=== PATIENT | male | born 1960 | race Native Hawaiian/Other Pacific Islander ===

== ENCOUNTER → 2016-12-20 | Outpatient (CLI) | payer BC ==
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
== END | disposition home or self-care (01) ==
LOC: RADCTMAIN 08:53 → EDBD 09:00
PROVIDERS: ATTEND Internal Medicine
DX: M48.02 Spinal stenosis, cervical region (principal); M99.71 Connective tissue and disc stenosis of intervertebral foramina of cervical region; J43.9 Emphysema, unspecified; M50.321 Other cervical disc degeneration at C4-C5 level; M46.92 Unspecified inflammatory spondylopathy, cervical region; M47.812 Spondylosis without myelopathy or radiculopathy, cervical region
CPT/HCPCS: 72125

== ENCOUNTER → 2017-03-25 | Outpatient (CLI) | payer BC ==
--- NOTE | 2017-03-25 22:07 | MR ---
EXAMINATION TYPE: MR lumbar spine wo con DATE OF EXAM: 03/25/2017 COMPARISON: NONE HISTORY: 57-year-old male low back pain. TECHNIQUE: Multiplanar, multisequence images of the lumbar spine were acquired. FINDINGS: Vertebral body heights are preserved. No suspicious bone marrow replacement. Conus medullaris is normal. Hypertrophic facet arthropathy lower lumbar spine with grade 1 anterolisthesis at L5-S1. Mild bulging discs throughout especially at L4-L5 and L5-S1. Ligamentum flavum thickening also at L4- L5. There is a component of mild congenital spinal canal stenosis with AP canal dimension of 1.2 cm in th e mid to lower lumbar spine. From T12 through L3 levels, no significant spinal canal or neuroforaminal stenosis. At L3-L4, mild bulging disc minimally impressing on the ventral thecal sac. There is mild bilateral n euroforaminal stenosis without spinal canal stenosis. At L4-L5, there is bulging disc with ligamentum flavum thickening and hypertrophic facet arthropathy. The changes mildly accentuates the congenital canal stenosis and cause mild left greater than right neuroforaminal stenosis. Disc material closely approaches and may abut the traversing left L5 nerve r oot. At L5-S1, there is diffuse disc bulge and hypertrophic facet arthropathy. There is a right intraforam inal annular fissuring as well. Changes result in moderate right neuroforaminal stenosis and mild lef t neuroforaminal stenosis. Disc material also closely approaches and may abut the traversing left S1 nerve root. No spinal canal stenosis. T2 intermediate signal lesion measuring 1.7 cm in the posterior upper to midpole left kidney. Further ultrasound evaluation is recommended to ensure that this represents a benign cyst. IMPRESSION: 1. Hypertrophic facet arthropathy lower lumbar spine with ligamentum flavum thickening. Changes resul t in grade 1 anterolisthesis at L5-S1. 2. 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 There is overall mild spin al canal stenosis at L4-L5 with mild left greater than right neural foraminal stenosis. Disc material may abut the traversing left L5 nerve root at this level. 3. At L5-S1, there is an intraforaminal annular fissure on the right with moderate right neuroforamin al stenosis. Mild left neuroforaminal stenosis with disc material approaching and possibly abutting t he traversing left S1 nerve root. 4. Recommend renal ultrasound to evaluate a 1.7 cm T2 intermediate signal lesion and to ensure that t his represents a benign cyst and exclude a solid mass.
== END | disposition home or self-care (01) ==
LOC: RADMRIMAIN 17:47
PROVIDERS: ATTEND Psychiatry & Neurology Neurology
DX: M48.061 Spinal stenosis, lumbar region without neurogenic claudication (principal); M99.73 Connective tissue and disc stenosis of intervertebral foramina of lumbar region; M43.17 Spondylolisthesis, lumbosacral region; M46.86 Other specified inflammatory spondylopathies, lumbar region; M24.28 Disorder of ligament, vertebrae; G89.4 Chronic pain syndrome
CPT/HCPCS: 72148